=== PATIENT | female | born 1980 | race Two or more races ===

== ENCOUNTER 2022-03-26 09:11 | Emergency (ER) | payer OTHER ==
[2022-03-26] MEDS ORDERED: Ketorolac 30 MG/ML SDV IM ONE (09:50)
== END 2022-03-26 10:12 | disposition home or self-care (01) ==
LOC: MW.ED 09:11
DX: M25.512 Pain in left shoulder (principal); M25.511 Pain in right shoulder; I10 Essential (primary) hypertension; E11.9 Type 2 diabetes mellitus without complications
CPT/HCPCS: 96372; 99283; J1885

== ENCOUNTER 2022-05-04 16:13 | Emergency (ER) | payer OTHER ==
[2022-05-04 17:52] LABS: CORONAVIRUS COVID-19 NAA NEGATIVE (NEGATIVE); INFLUENZA A NAA NEGATIVE (NEGATIVE); INFLUENZA B NAA NEGATIVE (NEGATIVE); RESPIRATORY SYNCYTIAL VIR NAA NEGATIVE (NEGATIVE)
== END 2022-05-04 18:10 | disposition home or self-care (01) ==
LOC: MW.ED 16:13
DX: N39.0 Urinary tract infection, site not specified (principal); Z20.822 Contact with and (suspected) exposure to COVID-19
CPT/HCPCS: 0241U; 81001; 81025; 87086; 99283; 87088